=== PATIENT | male | born 1945 | race Caucasian/White ===

== ENCOUNTER → 2020-09-02 | Outpatient (CLI) | payer OTHER ==
--- NOTE | 2020-09-02 13:56 | 2DMMODE ---
[place] [address] 2 D/M-MODE ECHOCARDIOGRAM Name: HAMILTON DYKES Room: [facility]#: [id number] Admission: 09/02/20 Attend Phys: Josse Fernandes MD Discharge: Date of : 49 Date of Service: 09/02/20 1356 Report #: [id number] THIS REPORT FOR: cc: Josse Fernandes MD, Charles MD Liston, Michael J. MD [facility] ~ APPROVED REPORT Study performed: 09/02/2020 12:53:45 EXAM: Comprehensive 2D, Doppler, and color-flow Echocardiogram Patient Location: Out-Patient BSA: 2.00 HR: 65 bpm BP: 130/68 mmHg Other Information Study Quality: Good Indications Ischemic heart disease 2D Dimensions IVSd: 12.90 (7-11mm) LVOT Diam: 20.50 (18-24mm) LVDd: 41.02 mm PWd: 11.29 (7-11mm) Ascending Ao: 33.95 (22-36mm) LVDs: 29.24 (25-40mm) Aortic Root: 29.69 mm Volumes Left Atrial Volume (Systole) LA ESV Index: 17.60 mL/m2 Aortic Valve AoV Peak Marcelo.: 2.21 m/s AO Peak Gr.: 19.52 mmHg LVOT Max P.02 mmHg AO Mean Gr.: 10.75 mmHg LVOT Mean P.27 mmHg LVOT Max V: 1.12 m/s AO V2 VTI: 49.27 cm LVOT Mean V: 0.68 m/s ALEXANDRE (VTI): 1.72 cm2 LVOT V1 VTI: 25.65 cm Mitral Valve E/A Ratio: 0.87 [place] [address] 2 D/M-MODE ECHOCARDIOGRAM Name: HAMILTON DYKES Room: [facility]#: [id number] Admission: 09/02/20 Attend Phys: Josse Fernandes MD Discharge: Date of : 49 Date of Service: 09/02/20 1356 Report #: [id number] MV Decel. Time: 217.55 ms MV E Max Marcelo.: 0.73 m/s MV PHT: 63.09 ms MVA (PHT): 3.49 cm2 TDI E/Lateral E': 7.30 E/Medial E': 10.43 Medial E' Marcelo.: 0.07 m/s Lateral E' Marcelo.: 0.10 m/s Pulmonary Valve PV Peak Marcelo.: 0.87 m/s PV Peak Gr.: 3.01 mmHg Tricuspid Valve RAP Estimate: 5.00 mmHg TR Peak Gr.: 20.67 mmHg RVSP: 25.67 mmHg PA Pressure: 25.67 mmHg Left Ventricle The left ventricle is normal size. There is normal LV segmental wall motion. There is normal left ventricular wall thickness. Left ventricular systolic function is normal. LVEF is 60-65%. Grade I - abnormal relaxation pattern. Right Ventricle The right ventricle is normal size. The right ventricular systolic function is normal. Atria Left atrium is mildly dilated. The right atrium size is normal. Aortic Valve The Aortic valve is sclerotic. No aortic regurgitation is present. Mild aortic stenosis. Mitral Valve The mitral valve is normal in structure. Mild mitral regurgitation. No evidence of mitral valve stenosis. Tricuspid Valve The tricuspid valve is normal in structure. Mild tricuspid regurgitation. No pulmonary hypertension. Pulmonic Valve The pulmonary valve is normal in structure. [place] [address] 2 D/M-MODE ECHOCARDIOGRAM Name: HAMILTON DYKES Room: [facility]#: [id number] Admission: 09/02/20 Attend Phys: Josse Fernandes MD Discharge: Date of : 49 Date of Service: 09/02/20 1356 Report #: [id number] valvular regurgitation. Great Vessels The aortic root is normal in size. IVC is normal in size and collapses >50% with inspiration. Pericardium There is no pericardial effusion. <Conclusion> The left ventricle is normal size. There is normal left ventricular wall thickness. Left ventricular systolic function is normal. LVEF is 60-65%. Grade I - abnormal relaxation pattern. Left atrium is mildly dilated. The Aortic valve is sclerotic. Mild aortic stenosis. Mild mitral regurgitation. Mild tricuspid regurgitation. No pulmonary hypertension. IVC is normal in size and collapses >50% with inspiration. <ELECTRONICALLY SIGNED> By: Diego Ambrocio MD, FACC 09/02/20 1356 1356 1356 Diego Ambrocio MD, FACC /INF
== END ==
LOC: M.CRD 12:45
PROVIDERS: ATTEND Orthopaedic Surgery
DX: I08.8 Other rheumatic multiple valve diseases (principal)